=== PATIENT | male | born 1970 | race Caucasian/White ===

== ENCOUNTER 2016-05-14 09:41 | Emergency (ER) | payer BC ==
[2016-05-14 10:54] VITALS: BP 115/69
--- NOTE | 2016-05-14 10:56 | UC ---
FLU HPI - HPI Summary HPI Summary: was on Augmentin and Tamiflu earlier in the week---got a bad stomach ache and has been throwing up ---no relief with Zofran---yesterday was able to keep down applesauce and water--stomach just feels cramping and bad - History of Current Complaint Chief Complaint: UCRespiratory Stated Complaint: FLU SYMPTOMS Time Seen by Provider: 05/14/16 10:55 Hx Obtained From: Patient Onset/Duration: Sudden Onset, Lasting Days, Still Present Severity Currently: Moderate Severity Initially: Moderate Pain Scale Used: 0-10 Numeric - 5 Associated Signs & Symptoms: Positive: Vomiting - when on Augmentin and Tamiflu - Allergy/Home Medications Allergies/Adverse Reactions: Allergies Allergy/AdvReac Type Severity Reaction Status Date / Time Gluten Meal Allergy IBS Verified 01/02/14 12:12 Home Medications: Home Medications Ondansetron ODT TAB* [Zofran 4 MG Odt TAB*] 4 mg PO Q6H PRN 05/14/16 [History Confirmed 05/14/16] PMH/Surg Hx/FS Hx/Imm Hx Previously Healthy: No Endocrine History Of: Reports: Thyroid Disease - multinodular goiter Neurological History Of: Reports: Migraine - IN THE PAST- SINUS Psychological History Of: Reports: Anxiety - NO MEDS - Surgical History Surgical History: Yes Surgery Procedure, Year, and Place: 1977, ADENOIDECTOMY, [facility]. WRIST FRACTURE, 1979, [facility] - Family History Known Family History: Positive: None - Social History Occupation: Employed Full-time Lives: With Family Alcohol Use: Daily Alcohol Amount: 10-14 PER WEEK Substance Use Type: None Smoking Status (MU): Former Smoker Amount Used/How Often: PACK A WEEK When Did the Patient Quit Smoking/Using Tobacco: 2003 Review of Systems Constitutional: Fever - earlier in the week now resolved Skin: Negative Eyes: Negative ENT: Negative Respiratory: Negative Cardiovascular: Negative Gastrointestinal: Abdominal Pain, Vomiting - none today or yesterday---but does have pain Genitourinary: Negative Motor: Negative Neurovascular: Negative Musculoskeletal: Negative Neurological: Negative Psychological: Negative All Other Systems Reviewed And Are Negative: Yes Physical Exam Triage Information Reviewed: Yes Appearance: Well-Appearing, No Pain Distress, Well-Nourished Vital Signs: Initial Vital Signs Temp 97.3 F 05/14/16 10:46 Pulse 59 05/14/16 10:46 Resp 18 05/14/16 10:46 BP 115/69 05/14/16 10:46 Pulse Ox 100 05/14/16 10:46 Vital Signs Reviewed: Yes Eye Exam: Normal Eyes: Positive: Conjunctiva Clear ENT Exam: Normal ENT: Positive: Normal ENT inspection, Hearing grossly normal, TMs normal. Negative: Nasal congestion, Nasal drainage, Tonsillar swelling, Tonsillar exudate, Trismus, Muffled/hoarse voice Dental Exam: Normal Neck exam: Normal Neck: Positive: Supple, Nontender, No Lymphadenopathy Respiratory Exam: Normal Respiratory: Positive: Chest non-tender, Lungs clear, Normal breath sounds, No respiratory distress, No accessory muscle use Cardiovascular Exam: Normal Cardiovascular: Positive: RRR, No Murmur, Pulses Normal, Brisk Capillary Refill Abdominal Exam: Normal Abdomen Description: Positive: Nontender, No Organomegaly, Soft Bowel Sounds: Positive: Present Musculoskeletal Exam: Normal Musculoskeletal: Positive: Strength Intact, ROM Intact, No Edema Neurological Exam: Normal Neurological: Positive: Alert, Muscle Tone Normal Psychological Exam: Normal Skin Exam: Normal Diagnostics - Laboratory Diagnostic Studies Completed/Ordered: urine- positive for ketones no blood or leks Re-Evaluation - Re-Evaluation Second Eval Change: Improved - pain relief with Maalox and Lidocaine Flu Course/Dx - Course Course Of Treatment: Zantac, increase fluids, light diet follow with pcp - Differential Dx/Diagnosis Differential Diagnosis/HQI/PQRI: Bronchitis, Upper Respiratory Infection Provider Diagnoses: Gastritis Discharge - Discharge Plan Condition: Stable Disposition: HOME Patient Education Materials: Ranitidine (By mouth), Gastritis (ED), Diet for Ulcers and Gastritis (ED) Referrals: Román Davis MD [Primary Care Provider] - 5 Days
[2016-05-14] MEDS ORDERED: Al Hydrox/Mg Hydrox/Simet LIQ* 30 ML UDC PO ONE (11:05)
[2016-05-14] MEDS ORDERED: Lidocaine 2% VISCOUS* 15 ML UDC PO ONE (11:06)
== END 2016-05-14 11:51 | disposition home or self-care (01) ==
LOC: UCEAST 09:41
DX: K29.70 Gastritis, unspecified, without bleeding (principal); Z87.891 Personal history of nicotine dependence
CPT/HCPCS: 81003; 99211; A9270-GY; G0463

== ENCOUNTER 2016-09-20 18:36 | Emergency (ER) | payer BC ==
[2016-09-20 18:55] VITALS: BP 115/74
== END 2016-09-20 19:39 | disposition left against medical advice (07) ==
LOC: ED 18:36
DX: R10.9 Unspecified abdominal pain (principal); Z53.21 Procedure and treatment not carried out due to patient leaving prior to being seen by health care provider